=== PATIENT | female | born 1990 | race Caucasian/White ===

== ENCOUNTER 2017-09-09 20:39 | Emergency (ER) | payer BC ==
[~2017-09-09] VITALS: Ht 154.9 cm; Wt 109.1 kg
[2017-09-09 20:45] VITALS: BP 135/67; TEMP 99.8
[2017-09-09] MEDS ORDERED: RT ALBUTER2.5 MG/0.5 IH (22:07)
[2017-09-09] MEDS ORDERED: ATARAX 25MG25 MG/TAB PO (22:17)
[2017-09-09] MEDS ORDERED: BLISOVI 24 FE1 EACH PO (22:18)
[2017-09-09] MEDS ORDERED: SYNTHROID 0.0.025 MG PO (22:18)
[2017-09-09] MEDS ORDERED: TAMIFLU 75MG75 MG PO (22:18)
[2017-09-09] MEDS ORDERED: PAXIL 10MG10 MG PO (22:18)
[2017-09-09 22:25] VITALS: PULSE 95
== END 2017-09-09 22:26 | disposition home or self-care (01) ==
LOC: COL.ER 20:39
DX: J11.1 Influenza due to unidentified influenza virus with other respiratory manifestations (principal); J42 Unspecified chronic bronchitis; E07.9 Disorder of thyroid, unspecified

== ENCOUNTER 2019-04-11 16:25 | Outpatient (CLI) | payer BC ==
[~2019-04-11] VITALS: Ht 154.9 cm; Wt 118.2 kg
[~2019-04-11 16:25] MED LIST: ATARAX 25MG25 MG/TAB PO; BLISOVI 24 FE1 EACH PO; PAXIL 10MG10 MG PO; RT ALBUTER2.5 MG/0.5 IH; SYNTHROID 0.0.025 MG PO; TAMIFLU 75MG75 MG PO
[2019-04-11 16:40] VITALS: BP 113/68; PULSE 99; TEMP 97.6
[2019-04-11] MEDS ORDERED: ZOLOFT 50MG50 MG PO (16:51)
[2019-04-11] MEDS ORDERED: LEVOXYL0.025 MG PO (16:51)
[2019-04-11] MEDS ORDERED: ACTIGALL 300MG300 MG PO (16:51)
[2019-04-11] MEDS ORDERED: NATURAL IRON65 MG (16:52)
[2019-04-11] MEDS ORDERED: PRENATAL MVI (16:52)
[2019-04-11] MEDS ORDERED: VITAMIN D31000 I1 PO (16:52)
[2019-04-11 17:06] VITALS: PULSE 78
--- NOTE | 2019-04-11 17:08 | NUR ---
1640 PATIENT VERY ANXIOUS, AND TEARY EYED. STATES HAS NOT FELT BABY MOVE ALL DAY AND HAS BEEN LEAKING SOMETHING. EFM ON FHR 130 GOOD ACCELERATIONS NOTED, BABY VERY ACTIVE. SVE 0/50/HIGH. AMNIOTRACE NEGATIVE. NO FLUID NOTED ON GLOVE. DR PHILIPPE CALLED AND UPDATED AND ORDERS TO DISMISS TO HOME AFTER A REACTIVE STRIP.
--- NOTE | 2019-04-11 17:10 | NUR ---
1710 REACTIVE STRIP NOTED. PATIENT DENIES NEEDS AT THIS TIME. ALL DISCHARGE INSTRUCTIONS GIVEN WITH VERBAL UNDERSTANDNING NOTED. DENIES NEEDS. DISMISSED TO HOME
== END 2019-04-11 17:12 | disposition home or self-care (01) ==
LOC: LDRO 16:25 → LDR 16:52 → LDRO 17:12
DX: O36.8130 Decreased fetal movements, third trimester, not applicable or unspecified (principal); Z3A.31 31 weeks gestation of pregnancy
CPT/HCPCS: OP

== ENCOUNTER 2019-05-16 20:49 | Inpatient (IN) | payer BC ==
[~2019-05-16] VITALS: Ht 154.9 cm; Wt 118.2 kg
[~2019-05-16 20:49] MED LIST changes: +ACTIGALL 300MG300 MG PO; +LEVOXYL0.025 MG PO; +NATURAL IRON65 MG; +PRENATAL MVI; +VITAMIN D31000 I1 PO; +ZOLOFT 50MG50 MG PO
[2019-05-16 21:20] VITALS: BP 122/79; PULSE 87; TEMP 97.7
[2019-05-16 22:54] LABS: BASO % 0.3 % (0.0-2.0); EOS # 0.1 (0.0-0.7); EOS % 0.9 % (0-4.0); GRAN # 8.9 (1.4-6.5); GRAN % 76.2 % (42.2-75.2); HEMATOCRIT 36.7 % (37.0-47.0); HEMOGLOBIN 11.7 g/dl (12.5-16.0); LYMPH # 1.8 (1.2-3.4); LYMPH % 15.6 % (20.0-51.0); MEAN CELL VOLUME 80 fl (80.0-100.0); MEAN CORPUSCULAR HEMOGLOBIN 26 pg (27.0-31.0); MEAN CORPUSCULAR HGB CONC 32 g/dl (33.0-37.0); MEAN PLATELET VOLUME 9.8 fl (7.4-10.4); MONO # 0.8 (0.1-0.6); MONO % 6.5 % (1.7-9.3); PLATELET COUNT 333 K/mm3 (130-400); RED BLOOD COUNT 4.58 M/mm3 (4.10-5.30); REDCELL DISTRIBUTION WIDTH-CV 15.8 % (11.5-14.5)
[2019-05-16 23:15] VITALS: BP 129/72; PULSE 81
[2019-05-16 23:30] VITALS: BP 120/68; PULSE 79
[2019-05-16 23:45] VITALS: BP 115/65; PULSE 78
[2019-05-17] VITALS (55 sets, daily range): BP systolic 92–162; BP diastolic 49–82; PULSE 69–125; TEMP 97–98.4
[2019-05-17] MEDS ORDERED: MOTRIN 800800 MG/TAB PO (11:52)
[2019-05-17] MEDS ORDERED: PERCOCET 325 MG1 TA2 PO (11:52)
[2019-05-18 07:23] VITALS: BP 128/68; PULSE 76; TEMP 98.1
[2019-05-18 15:48] VITALS: BP 122/46; PULSE 76; TEMP 98.1
[2019-05-18 20:48] VITALS: BP 132/77; PULSE 92; TEMP 97.7
[2019-05-19 07:50] VITALS: BP 139/82; PULSE 84; TEMP 97.7
== END 2019-05-19 17:00 | disposition home or self-care (01) | DRG 805 ==
LOC: LDRO 20:49 → LDR 21:51 → OB 05-17 13:12
PROVIDERS: ADMIT Obstetrics & Gynecology
PROC: 10E0XZZ Delivery of Products of Conception, External Approach (ICD-10-PCS; principal; 2019-05-17)
DX: O42.913 Preterm premature rupture of membranes, unspecified as to length of time between rupture and onset of labor, third trimester (principal); K83.1 Obstruction of bile duct; Z37.0 Single live birth; O26.62 Liver and biliary tract disorders in childbirth; O99.344 Other mental disorders complicating childbirth; O99.214 Obesity complicating childbirth; O99.284 Endocrine, nutritional and metabolic diseases complicating childbirth; F41.9 Anxiety disorder, unspecified; O99.52 Diseases of the respiratory system complicating childbirth; O99.824 Streptococcus B carrier state complicating childbirth; E03.9 Hypothyroidism, unspecified; O99.62 Diseases of the digestive system complicating childbirth; O70.1 Second degree perineal laceration during delivery; J45.909 Unspecified asthma, uncomplicated; Z3A.36 36 weeks gestation of pregnancy
CPT/HCPCS: J2590; J3370; J7050; J7120

== ENCOUNTER → 2019-05-24 | Outpatient (CLI) | payer BC ==
[~2019-05-24] MED LIST changes: +MOTRIN 800800 MG/TAB PO; +PERCOCET 325 MG1 TA2 PO
--- NOTE | 2019-05-24 13:11 | NUR ---
Pt, Yin Acuña, into clinic with one week old Gamaliel for evaluation and weight check. Gamaliel was born at 36 weeks gestation on [birth year] via vac. assisted vaginal delivery. Gamaliel's was was noted as 5#10.1 oz (2555 gm). Yin states that Gamaliel nursed "well" while at the hospital, but since discharge on 05/20/19 she has not been able to get him to latch to the breast she she has been pumping and feeding. Per Yin, Gamaliel has been taking 1-1.5 EBM eight times per day via bottle and is having 3 stools, and 8 wet diapers per day. Yin states she is also pumping with a double electric pump 8 times per day and is collecting approximently 60 mls with each pumping session. While in clinic Yin put Gamaliel to the breast. He was very fussy and would not stay latched on. offered a breast shield to see if it would help him stay latched as he has been used to a bottle and pacifier. Gamaliel latched to the left breast with the nipple shield for approximently 15 min. He then latched to the right breast without the nipple shield for another 15 min. Gamaliel ws able to transfer 14 mls from each breast, with a total gain of 28 ml (one oz). POC: Continue to feed ad melba, at least 8 feedings per day. Start using the 3 step feeding method of putting infant to breast, then supplementing 1 oz EBM via bottle, followed by 10-15 min of pumping to get out what milk Gamaliel is leaving in the breast and to help increase production of milk. Prior to coming into clinic today, Gamaliel had a bili level drawn. Yin expressed concern that the level has increased and stated she feels Gamaliel appears more yellow then he did previously. encouraged Yin to call Gamaliel's physician for follow up. Questions invited and answered. Understanding verbalized. Anticipate return to clinic next Thursday.
== END ==
LOC: OLC 10:47
DX: Z39.1 Encounter for care and examination of lactating mother (principal); Z71.89 Other specified counseling

== ENCOUNTER 2022-06-08 06:48 | Emergency (ER) | payer BC ==
[~2022-06-08] VITALS: Ht 154.9 cm; Wt 113.6 kg
[2022-06-08 06:55] VITALS: BP 112/60; PULSE 79; TEMP 97.8
[2022-06-08] MEDS ORDERED: NORCO 325 MG-51 TAB PO (07:26)
[2022-06-08] MEDS ORDERED: ILOTYCIN5 MG/GM OP (07:26)
[2022-06-08] MEDS ORDERED: ACULAR 3 ML3 ML OS (07:26)
== END 2022-06-08 07:45 | disposition home or self-care (01) ==
LOC: COL.ER 06:48
DX: S05.02XA Injury of conjunctiva and corneal abrasion without foreign body, left eye, initial encounter (principal); Z88.1 Allergy status to other antibiotic agents; W50.1XXA Accidental kick by another person, initial encounter